=== PATIENT | female | born 1995 | race African-American/Black ===

== ENCOUNTER 2019-01-26 16:45 | Emergency (ER) | payer OTHER ==
[~2019-01-26] VITALS: Ht 165.1 cm; Wt 48.9 kg
[2019-01-26 19:24] VITALS: BP 101/52
[2019-01-26] MEDS ORDERED: FLAG500T PO (19:43)
[2019-01-26] MEDS ORDERED: DIFL150T PO (19:43)
[2019-01-26 20:26] LABS: CHLAMYDIA DNA AMPLIFICATION NEGATIVE (NEGATIVE); GC DNA AMPLIFICATION NEGATIVE (NEGATIVE)
== END 2019-01-26 19:55 | disposition home or self-care (01) ==
LOC: M ED 16:45
DX: B37.3 Candidiasis of vulva and vagina (principal); N76.0 Acute vaginitis; Z79.3 Long term (current) use of hormonal contraceptives